=== PATIENT | female | born 1960 | race Caucasian/White ===

== ENCOUNTER 2021-02-25 22:02 | Observation (INO) | payer BC ==
[2021-02-25] MEDS ORDERED: SODIUM CHLORIDE 0.9% 1,000 ML IV STA (22:23)
[2021-02-25] MEDS ORDERED: ONDANSETRON 4 MG/2 ML VIAL IVP STA (22:23)
[2021-02-25] MEDS ORDERED: MORPHINE SULFATE 4 MG/ML SYRINGE IV STA (22:23)
[2021-02-25 22:40] LABS: Basophils # (A) 0.1 k/uL (0-0.2); Basophils % (A) 1 %; Eosinophils # (A) 0.3 k/uL (0-0.7); Eosinophils % (A) 2 %; HGB 15.1 gm/dL (11.4-16.0); Lymphocytes # (A) 2.6 k/uL (1.0-4.8); Lymphocytes % (A) 21 %; MCH 30.9 pg (25.0-35.0); MCHC 33.5 g/dL (31.0-37.0); MCV 92.2 fL (80.0-100.0); Mean Platelet Volume 8.1; Monocytes # (A) 0.6 k/uL (0-1.0); Monocytes % (A) 5 %; Neutrophils # (A) 8.9 k/uL (1.3-7.7); Neutrophils % (A) 70 %; Platelet Count 244 k/uL (150-450); RBC 4.88 m/uL (3.80-5.40); RDW 14.3 % (11.5-15.5); WBC 12.7 k/uL (3.8-10.6)
[2021-02-25 22:50] LABS: ALT 31 U/L (4-34); AST 32 U/L (14-36); African American GFR (CKD) >90 (>60 ml/min/1.73 sqM); Albumin 4.4 g/dL (3.5-5.0); Alkaline Phosphatase 193 U/L (38-126); Amylase 78 U/L (30-110); Anion Gap 9 mmol/L; Blood Urea Nitrogen 14 mg/dL (7-17); Calcium 9.5 mg/dL (8.4-10.2); Carbon Dioxide 24 mmol/L (22-30); Chloride 101 mmol/L (98-107); Glucose 126 mg/dL (74-99); Lipase 1050 U/L (23-300); Non-African American GFR(CKD) 88 (>60 ml/min/1.73 sqM); Potassium 4.2 mmol/L (3.5-5.1); Sodium 134 mmol/L (137-145); Total Bilirubin 0.3 mg/dL (0.2-1.3); Total Protein 7.4 g/dL (6.3-8.2)
--- NOTE | 2021-02-25 23:20 | XR ---
EXAMINATION TYPE: XR KUB DATE OF EXAM: 02/25/2021 COMPARISON: NONE HISTORY: Back pain TECHNIQUE: 2 views FINDINGS: 2 views upright were obtained. Bowel gas pattern is normal. There is no sign of intestinal obstruction or pneumoperitoneum. Fecal pattern is normal. Lung bases are clear. IMPRESSION: Nonacute abdomen.
[2021-02-25 23:45] LABS: Appearance,Urine Clear (Clear); Bilirubin,Urine Negative (Negative); Blood,Urine Negative (Negative); Color,Urine Colorless; Glucose,Urine (UA) Negative (Negative); Ketones,Urine Negative (Negative); Leukocyte Esterase,Urine Negative (Negative); Nitrite,Urine Negative (Negative); Protein,Urine Negative (Negative); Specific Gravity,Urine 1.004 (1.001-1.035); Urobilinogen,Urine <2.0 mg/dL (<2.0)
--- NOTE | 2021-02-25 23:51 | ED ---
Abdominal Pain HPI - General Source: patient, RN notes reviewed Mode of arrival: ambulatory Limitations: no limitations <Ajit Young - Last Filed: 02/25/21 23:45> <Tommie Escobar - Last Filed: 02/25/21 23:56> - General Chief Complaint: Abdominal Pain Stated Complaint: Back Pain Time Seen by Provider: 02/25/21 22:16 - History of Present Illness Initial Comments: Patient is a 61-year-old female that presents to emergency department complaining of upper abdominal pain with mild nausea. She notes that this started on Tuesday when she was eating hot dogs. She notes that every time she's eaten since then she gets about pain with diarrhea. She notes that she still has her gallbladder. She notes that her pain was approximately 6-7 out of 10 with no relief from at home therapies. She notes that the pain increases after eating but goes well its own after a short while. Patient's daughter notes that it took a lot of convincing that patient come to the ER after patient has been complaining for several days about this abdominal pain. She was otherwise a well-appearing 61-year-old female. She denied any chest pain shortness of breath headache vomiting constipation fever fatigue chills. (Ajit Young) - Related Data Home Medications Medication Instructions Recorded Confirmed Atorvastatin Calcium [Lipitor] 20 mg PO HS 02/25/21 02/25/21 Levothyroxine Sodium [Synthroid] 75 mcg PO DAILY 02/25/21 02/25/21 Allergies Allergy/AdvReac Type Severity Reaction Status Date / Time No Known Allergies Allergy Verified 02/25/21 23:12 Review of Systems ROS Other: All systems not noted in ROS Statement are negative. <Ajit Young - Last Filed: 02/25/21 23:45> ROS Other: All systems not noted in ROS Statement are negative. <Tommie Escobar - Last Filed: 02/25/21 23:56> ROS Statement: Those systems with pertinent positive or pertinent negative responses have been documented in the HPI. Past Medical History Past Medical History: No Reported History Additional Past Medical History / Comment(s): hypothroidism. hypercholestremia History of Any Multi-Drug Resistant Organisms: None Reported Past Surgical History: No Surgical Hx Reported Past Psychological History: No Psychological Hx Reported Smoking Status: Current every day smoker Past Alcohol Use History: None Reported Past Drug Use History: None Reported <Ajit Young - Last Filed: 02/25/21 23:45> General Exam Limitations: no limitations General appearance: alert, in no apparent distress, obese Head exam: Present: atraumatic, normocephalic, normal inspection Eye exam: Present: normal appearance, PERRL, EOMI. Absent: scleral icterus, conjunctival injection, periorbital swelling Neck exam: Present: normal inspection Respiratory exam: Present: normal lung sounds bilaterally. Absent: respiratory distress, wheezes, rales, rhonchi, stridor Cardiovascular Exam: Present: regular rate, normal rhythm, normal heart sounds. Absent: systolic murmur, diastolic murmur, rubs, gallop, clicks GI/Abdominal exam: Present: soft, tenderness (Right upper quadrant), normal bowel sounds. Absent: distended, guarding, rebound, rigid Expanded GI/Abdominal exam: Present: Yung's sign Extremities exam: Present: normal inspection, full ROM, normal capillary refill. Absent: tenderness, pedal edema, joint swelling, calf tenderness Neurological exam: Present: alert, oriented X3 Psychiatric exam: Present: normal affect, normal mood Skin exam: Present: warm, dry, intact, normal color. Absent: rash <Ajit Young - Last Filed: 02/25/21 23:45> Course Vital Signs 02/25/21 22:04 Temperature 98.2 F Pulse Rate 87 Respiratory 18 Rate Blood Pressure 153/88 O2 Sat by Pulse 98 Oximetry Medical Decision Making - Lab Data Result diagrams: 02/25/21 22:33 02/25/21 22:33 - Radiology Data Radiology results: report reviewed, image reviewed <Ajit Young - Last Filed: 02/25/21 23:45> - Lab Data Result diagrams: 02/25/21 22:33 02/25/21 22:33 <Tommie Escobar - Last Filed: 02/25/21 23:56> - Medical Decision Making 61-year-old female complaining of right upper quadrant pain with some nausea since Tuesday worse with food. Labs, 1 L normal saline, 4 mg of morphine, 4 mg of Zofran, KUB ordered. Labs: White blood cells 12.7, lipase 1050, rest of labs unremarkable. Urinalysis negative for any UTI. Due to elevated lipase, bladder ultrasound was ordered. Case signed off to Dr. Escobar. (Ajit Young) - Lab Data Lab Results 02/25/21 02/25/21 02/25/21 Range/Units 22:33 22:33 22:33 WBC 12.7 H (3.8-10.6) k/uL RBC 4.88 (3.80-5.40) m/uL Hgb 15.1 (11.4-16.0) gm/dL Hct 45.0 (34.0-46.0) % MCV 92.2 (80.0-100.0) fL MCH 30.9 (25.0-35.0) pg MCHC 33.5 (31.0-37.0) g/dL RDW 14.3 (11.5-15.5) % Plt Count 244 (150-450) k/uL MPV 8.1 Neutrophils % 70 % Lymphocytes % 21 % Monocytes % 5 % Eosinophils % 2 % Basophils % 1 % Neutrophils # 8.9 H (1.3-7.7) k/uL Lymphocytes # 2.6 (1.0-4.8) k/uL Monocytes # 0.6 (0-1.0) k/uL Eosinophils # 0.3 (0-0.7) k/uL Basophils # 0.1 (0-0.2) k/uL Sodium 134 L (137-145) mmol/L Potassium 4.2 (3.5-5.1) mmol/L Chloride 101 (98-107) mmol/L Carbon Dioxide 24 (22-30) mmol/L Anion Gap 9 mmol/L BUN 14 (7-17) mg/dL Creatinine 0.73 (0.52-1.04) mg/dL Est GFR (CKD-EPI)AfAm >90 (>60 ml/min/1.73 sqM) Est GFR (CKD-EPI)NonAf 88 (>60 ml/min/1.73 sqM) Glucose 126 H (74-99) mg/dL Calcium 9.5 (8.4-10.2) mg/dL Total Bilirubin 0.3 (0.2-1.3) mg/dL AST 32 (14-36) U/L ALT 31 (4-34) U/L Alkaline Phosphatase 193 H (38-126) U/L Total Protein 7.4 (6.3-8.2) g/dL Albumin 4.4 (3.5-5.0) g/dL Amylase 78 (30-110) U/L Lipase 1050 H (23-300) U/L Urine Color Colorless Urine Appearance Clear (Clear) Urine pH 5.0 (5.0-8.0) Ur Specific [place] 1.004 (1.001-1.035) Urine Protein Negative (Negative) Urine Glucose (UA) Negative (Negative) Urine Ketones Negative (Negative) Urine Blood Negative (Negative) Urine Nitrite Negative (Negative) Urine Bilirubin Negative (Negative) Urine Urobilinogen <2.0 (<2.0) mg/dL Ur Leukocyte Esterase Negative (Negative) - Radiology Data KUB: Nonacute abdomen. (Ajit Young) Disposition <Ajit Young - Last Filed: 02/25/21 23:45> Is patient prescribed a controlled substance at d/c from ED?: No <Tommie Escobar - Last Filed: 02/25/21 23:56> Clinical Impression: Abdominal pain, Pancreatitis Disposition: ADMITTED IP TO THIS HOSP Condition: Good Referrals: Kishan Ford MD [Primary Care Provider] - 1-2 days
[2021-02-25] MEDS ORDERED: MORPHINE SULFATE 4 MG/ML SYRINGE IV PRN (23:56)
[2021-02-25] MEDS ORDERED: ONDANSETRON 4 MG/2 ML VIAL IVP PRN (23:56)
[2021-02-25] MEDS ORDERED: NALOXONE 0.4 MG/ML 1 ML VIAL IV PRN (23:56)
--- NOTE | 2021-02-26 00:47 | US ---
EXAMINATION TYPE: US gallbladder DATE OF EXAM: 02/26/2021 COMPARISON: NONE CLINICAL HISTORY: ruq pain. RUQ pain. EXAM MEASUREMENTS: Liver Length: 15.4 cm Gallbladder Wall: 0.32 cm CBD: 0.48 cm Right Kidney: 10.9 x 5.2 x 4.7 cm Limited due to gas and patient body habitus. Pancreas: Slightly limited visibility of tail. Appears heterogeneous. Liver: Appears coarse and to have an increased echogenicity. Gallbladder: Possible internal echoes versus artifact seen. Fold seen. Wall thickness measures upper limits of normal. Evidence for sonographic Yung's sign: No CBD: Portions seen appear to be wnl. Right Kidney: No hydronephrosis or masses seen IMPRESSION: No gallstones seen. No dilated ducts. There is probably some fatty infiltration of the li sammy.
[2021-02-26] MEDS ORDERED: HYDROmorphone 1 MG/ML 1 ML SYRINGE IVP PRN (00:57)
[2021-02-26] MEDS: SODIUM CHLORIDE 0.9% 1,000 ML IV SCH ×2 (01:39→08:27)
--- NOTE | 2021-02-26 03:20 | P.HPIM ---
History of Present Illness H&P Date: 02/26/21 Chief Complaint: abd pain 61-year-old female with hyperlipidemia and hypothyroid Comes in with 5 day history of abdominal pain problem started back on Tuesday when suddenly she felt epigastric abdominal pain radiating straight to the back she described it as moderate 7 out of 10 in severity was not associated with any vomiting or diarrhea however she did have some nausea at all started after she had some chili dogs. She knows that spicy food doesn't work for her so she rested for the rest of the day waiting for pain subsided Patient pain actually subsided over the coming days however today she woke up finding that the pain is extremely severe 10 out of 10 epigastric going straight to the back and radiating around the right side to the back associated with severe nausea chills but denies any shortness of breath denies any chest pain denies any diarrhea denies vomiting denies any GI bleeding. She was doing okay for few days since the pain started on Tuesday she was tolerating by mouth intake she usually eats out at fast food restaurants she eats 1 meal a day to denies any alcohol or drug abuse. She does smoke half pack a day she denies any similar history in the past. She otherwise describes her health as good she hasn't been hospitalized recently no recent traveling no sick contact. She comes into the ED she was evaluated and was found to have acute pancreatitis Gallbladder ultrasound showed no acute pathology Blood work showed elevated alkaline phosphatase but normal liver enzymes Vital signs stable Review of Systems Pertinent positives as noted in HPI. All other systems were reviewed and are negative Past Medical History Past Medical History: Hyperlipidemia, Thyroid Disorder Additional Past Medical History / Comment(s): hypothroidism. hypercholestremia History of Any Multi-Drug Resistant Organisms: None Reported Past Surgical History: No Surgical Hx Reported Additional Past Surgical History / Comment(s): Tubes ligation Past Psychological History: No Psychological Hx Reported Smoking Status: Current every day smoker Past Alcohol Use History: None Reported Past Drug Use History: None Reported - Past Family History Father Additional Family Medical History / Comment(s): Lung cancer at age 67 Medications and Allergies Home Medications Medication Instructions Recorded Confirmed Type Atorvastatin Calcium [Lipitor] 20 mg PO HS 02/25/21 02/25/21 History Levothyroxine Sodium [Synthroid] 75 mcg PO DAILY 02/25/21 02/25/21 History Allergies Allergy/AdvReac Type Severity Reaction Status Date / Time No Known Allergies Allergy Verified 02/25/21 23:12 Physical Exam Vitals: Vital Signs Temp Pulse Pulse Resp BP BP Pulse Ox 02/26/21 00:58 98 F 73 18 133/82 96 02/25/21 22:04 98.2 F 87 18 153/88 98 Intake and Output 02/25/21 02/25/21 02/26/21 14:59 22:59 06:59 Other: Weight 90.718 kg 90.718 kg Constitutional: No acute distress, conversant, pleasant Eyes: Anicteric sclerae, moist conjunctiva, Pupils equal round reactive to light ENMT: NC/AT Oropharynx clear, no erythema, or exudates Neck: Supple, FROM, no masses, or JVD No carotid bruits No thyromegaly Lungs: Clear to auscultation Clear to percussion Normal respiratory effort, no accessory muscle use Cardiovascular: Heart regular in rate and rhythm, No murmurs, gallops, or rubs No peripheral edema Abdominal: Soft Epigastric abdominal tenderness, no guarding, rebound or rigidity Abdomen moving with respiration Normoactive bowel sounds No hepatomegaly, No splenomegaly No palpable mass No abdominal wall hernia noted Skin: Normal temperature, tone, texture, turgor No induration No subcutaneous nodules No rash, lesions No ulcers Extremities: No digital cyanosis No clubbing Pedal pulses intact and symmetrical Radial pulses intact and symmetrical No calf tenderness Psychiatric: Alert and oriented to person, place and time Appropriate affect fair judgement Neuro Muscles Strength 5/5 in all 4 extremities Sensation to light touch grossly present throughout Cranial nerves II-XII grossly intact No focal sensory deficits Lymphatics: no palpable cervical or supraclavicular , or inguinal lymph nodes Results CBC & Chem 7: 02/25/21 22:33 02/25/21 22:33 Labs: Abnormal Lab Results - Last 24 Hours (Table) 02/25/21 02/25/21 Range/Units 22:33 22:33 WBC 12.7 H (3.8-10.6) k/uL Neutrophils # 8.9 H (1.3-7.7) k/uL Sodium 134 L (137-145) mmol/L Glucose 126 H (74-99) mg/dL Alkaline Phosphatase 193 H (38-126) U/L Lipase 1050 H (23-300) U/L Assessment and Plan Assessment: Acute pancreatitis unknown underlying cause Abdominal ultrasound showed no code bladder disease Liver enzymes are unremarkable except for elevated alkaline phosphatase Lipase is elevated Denies any alcohol Aggressive IV fluid hydration with lactated Ringer Pain control with opiates Nothing by mouth Follow-up CBC and BMP Advance diet as tolerated once she transitions to by mouth pain meds PPI Check triglyceride level Check IgG4 Chronic conditions Hyperlipidemia continue statin Hypothyroid continue levothyroxine Patient is full code Anticipated length of stay more than 2 midnights Anticipated discharge to home DVT prophylaxis with heparin subcu 3 times a day
[2021-02-26] MEDS: LEVOTHYROXINE 75 MCG TAB PO SCH (06:16)
[2021-02-26 06:45] LABS: Basophils # (A) 0.1 k/uL (0-0.2); Basophils % (A) 1 %; Eosinophils # (A) 0.3 k/uL (0-0.7); Eosinophils % (A) 3 %; HCT 42.4 % (34.0-46.0); HGB 14.1 gm/dL (11.4-16.0); Lymphocytes # (A) 2.2 k/uL (1.0-4.8); Lymphocytes % (A) 20 %; MCHC 33.3 g/dL (31.0-37.0); Mean Platelet Volume 8.1; Monocytes # (A) 0.5 k/uL (0-1.0); Monocytes % (A) 5 %; Neutrophils # (A) 7.6 k/uL (1.3-7.7); Neutrophils % (A) 71 %; Platelet Count 222 k/uL (150-450); RBC 4.56 m/uL (3.80-5.40); RDW 14.5 % (11.5-15.5); WBC 10.8 k/uL (3.8-10.6)
[2021-02-26 07:00] LABS: ALT 24 U/L (4-34); AST 26 U/L (14-36); African American GFR (CKD) >90 (>60 ml/min/1.73 sqM); Albumin 3.6 g/dL (3.5-5.0); Alkaline Phosphatase 139 U/L (38-126); Anion Gap 5 mmol/L; Blood Urea Nitrogen 10 mg/dL (7-17); Calcium 8.7 mg/dL (8.4-10.2); Carbon Dioxide 26 mmol/L (22-30); Chloride 107 mmol/L (98-107); Glucose 117 mg/dL (74-99); Non-African American GFR(CKD) >90 (>60 ml/min/1.73 sqM); Potassium 4.5 mmol/L (3.5-5.1); Sodium 138 mmol/L (137-145); Total Bilirubin 0.3 mg/dL (0.2-1.3); Total Protein 6.3 g/dL (6.3-8.2)
[2021-02-26] MEDS: PANTOPRAZOLE 40 MG/10 ML VIAL IV SCH (08:09)
[2021-02-26] MEDS: HEPARIN SODIUM,PORCINE/PF 5,000 UNIT/0.5 ML SYRINGE SQ SCH ×2 (08:09→15:48)
[2021-02-26] MEDS: LACTATED RINGERS 1,000 ML IV SCH ×3 (08:10→18:27)
[2021-02-26 20:20] LABS: Chol/HDL Ratio 3.55; Cholesterol 174 mg/dL (0-200); LDL Cholesterol,Calculated 96.6 mg/dL (0.0-131.0)
[2021-02-26] MEDS ORDERED: ATORVASTATIN 20 MG TAB PO SCH (21:00)
[2021-02-27] MEDS: HEPARIN SODIUM,PORCINE/PF 5,000 UNIT/0.5 ML SYRINGE SQ SCH ×2 (01:14→10:07)
[2021-02-27] MEDS: LACTATED RINGERS 1,000 ML IV SCH ×2 (01:15→10:07)
[2021-02-27] MEDS: LEVOTHYROXINE 75 MCG TAB PO SCH (10:07)
[2021-02-27] MEDS: PANTOPRAZOLE 40 MG/10 ML VIAL IV SCH (10:07)
[2021-02-27 10:46] VITALS: BP 143/85; PULSE 53; RESP 18; TEMP 97.9
--- NOTE | 2021-02-27 13:34 | P.DS ---
Providers Date of admission: 02/25/21 23:57 Expected date of discharge: 02/27/21 Attending physician: Liz Zheng MD Primary care physician: Kishan Ford MD Hospital Course: Acute pancreatitis unknown underlying cause Patient was admitted with abdominal pain and was found to have elevated lipase consistent with pancreatitis. Abdominal ultrasound showed no evidence of gallbladder disease. She denied any alcohol use. She is placed on IV fluids and pain control with opiates. She recovered very quickly without any need for IV pain medications on the first 12 hours. She was tolerating a diet within 24 hours and was advanced to a solid diet within 36 hours. No pain had returned. Patient was discharged home with no changes to her home medication regimen. Assessment: Gen: awake, alert HEENT: normocephalic, atraumatic, good hearing acuity, moist mucous membranes Resp: good air exchange, breathing comfortably with no accessory muscle use CVS: good distal perfusion x 4, GI: soft, NTTP, ND : no SPT, no CVAT, figueroa catheter not present MSK: no pitting edema, no clubbing Neuro: non-focal, moving all extremities Psych: cooperative, euthymic mood Patient Condition at Discharge: Good Plan - Discharge Summary New Discharge Prescriptions: Continue Atorvastatin Calcium [Lipitor] 20 mg PO HS Levothyroxine Sodium [Synthroid] 75 mcg PO DAILY Discharge Medication List Atorvastatin Calcium [Lipitor] 20 mg PO HS 02/25/21 [History] Levothyroxine Sodium [Synthroid] 75 mcg PO DAILY 02/25/21 [History] Follow up Appointment(s)/Referral(s): Kishan Ford MD [Primary Care Provider] - 1-2 days Patient Instructions/Handouts: Pancreatitis (DC), Soft Diet (DC) Activity/Diet/Wound Care/Special Instructions: continue soft diet as tolerated. fluids are encouraged. Follow up with physicians as directed. Call physician with any questions comments concerns worsening returning symptoms, fever 101.1, not tolerating diet or fluids, pain not controlled by medications prescribed to you. Discharge Disposition: HOME SELF-CARE
[2021-02-27 13:48] LABS: IgG Subclass 3 10.5 mg/dL (11.0-85.0); IgG Subclass 4 32.2 mg/dL (3.0-175.0)
== END 2021-02-27 13:50 | disposition home or self-care (01) ==
LOC: EC 22:02 → 6PED 23:57
PROVIDERS: ADMIT Internal Medicine; ATTEND Internal Medicine
DX: K85.90 Acute pancreatitis without necrosis or infection, unspecified (principal); E03.9 Hypothyroidism, unspecified; E78.5 Hyperlipidemia, unspecified; F17.200 Nicotine dependence, unspecified, uncomplicated; Z79.890 Hormone replacement therapy; Z79.899 Other long term (current) drug therapy; Z80.1 Family history of malignant neoplasm of trachea, bronchus and lung
CPT/HCPCS: 96361 ×4; 96372 ×2; 96375 ×2; 96376; 96374; 99284; 36415; 80061; 80053 ×2; 82150; 83690; 85025 ×2; 81003; 82787; 74018; 76705; G0378 ×2; J2270; J2405; C9113 ×2; J1644 ×2